=== PATIENT | male | born 1985 | race Caucasian/White ===

== ENCOUNTER 2017-09-20 07:09 | Emergency (ER) | payer OTHER ==
[2017-09-20] MEDS: ASPIRIN 325 MG TAB PO (07:51)
[2017-09-20] MEDS: ONDANSETRON 4 MG INJ IV (07:51)
[2017-09-20] MEDS: morphine 2 MG INJ IV (07:51)
[2017-09-20 07:53] LABS: ADD MAN DIFF? NO
[2017-09-20 07:54] LABS: BASOPHIL # 0.1 10^3/ul (0.0-0.1); BASOPHILS % 0.4 % (0.0-2.0); EOSINOPHILS # 0.2 10^3/ul (0.0-0.5); EOSINOPHILS % 1.2 % (0.0-7.0); HEMOGLOBIN 15.3 g/dl (14.0-18.0); LYMPHOCYTES # 3.9 10^3/ul (0.8-2.9); LYMPHOCYTES % 27.3 % (15.0-51.0); MEAN CORPUSCULAR HEMOGLOBIN 27.9 pg (29.0-33.0); MEAN CORPUSCULAR HGB CONC 32.6 g/dl (32.0-37.0); MEAN CORPUSCULAR VOLUME 85.8 fl (82.0-101.0); MEAN PLATELET VOLUME 9.4 fl (7.4-10.4); MONOCYTE # 0.6 10^3/ul (0.3-0.9); MONOCYTES % 4.3 % (0.0-11.0); NEUTROPHIL # 9.5 10^3/ul (1.6-7.5); NEUTROPHILS % 66.2 % (39.0-77.0); PLATELET COUNT 331 10^3/UL (140-415); RED BLOOD COUNT 5.48 10^6/ul (4.70-6.10); RED CELL DISTRIBUTION WIDTH 13.7 % (11.5-14.5)
[2017-09-20 07:54] LABS: WHITE BLOOD COUNT 14.4 10^3/ul (4.8-10.8)
[2017-09-20] MEDS: SOD CHLORIDE 0.9% 1,000 ML IV (07:54)
[2017-09-20 08:18] LABS: ANION GAP 20 (8-16); BLOOD UREA NITROGEN 10 mg/dl (7-20); CALCIUM 9.6 mg/dl (8.4-10.2); CARBON DIOXIDE 30 mmol/L (21-31); CHLORIDE 103 mmol/L (97-110); GLUCOSE 150 mg/dl (70-220); POTASSIUM 4.5 mmol/L (3.5-5.1); SODIUM 148 mmol/L (135-144)
[2017-09-20 08:28] LABS: INR 1.09; PROTIME 14.2 Sec (11.9-14.9); PT RATIO 1.1
[2017-09-20 08:29] LABS: PARTIAL THROMBOPLASTIN TIME 26.2 Sec (25.0-35.0)
[2017-09-20 08:30] LABS: TROPONIN-I < 0.012 ng/ml (0.00-0.12)
[2017-09-20 08:31] LABS: D-DIMER 1209.71 ng/ml (<460)
[2017-09-20] MEDS: SOD CHLORIDE 0.9% 100 ML (09:59)
[2017-09-20] MEDS: IOHEXOL 100 ML (09:59)
== END 2017-09-20 10:38 | disposition home or self-care (01) ==
LOC: FTE 07:09
DX: R07.81 Pleurodynia (principal); R07.9 Chest pain, unspecified
CPT/HCPCS: 36415; 71045; 71275; 80048; 84484; 85025; 85378; 85610; 85730; 93005; 96374; 96375; 99285-25

== ENCOUNTER 2018-10-28 12:40 | Emergency (ER) | payer OTHER ==
[2018-10-28] MEDS: IBUPROFEN 800 MG TAB PO (13:56)
== END 2018-10-28 14:24 | disposition home or self-care (01) ==
LOC: FTE 12:40
DX: M54.5 Low back pain (principal)
CPT/HCPCS: 99283; Z7502